=== PATIENT | female | born 1940 | race Caucasian/White ===

== ENCOUNTER 2019-07-04 22:50 | Inpatient (IN) ==
[2019-07-04] MEDS ORDERED: DUONEB (A & A) INH ONE ×2 (22:52→22:53)
[2019-07-04 23:40] LABS: CALCIUM 8.8 mg/dL (8.8-10.2); POTASSIUM 4.3 mmol/L (3.5-5.1)
[2019-07-05 00:27] LABS: BASO# 0.05 X1000 (0.0-0.2); BASO% 0.3 % (0.0-0.8); EOS# 0.38 X1000 (0.0-0.7); EOS% 2.6 % (0.0-10.0); HEMATOCRIT 35.2 % (37.0-47.0); HEMOGLOBIN 10.1 g/dL (12.0-16.0); IMM GRAN# 0.23 X1000 (0.0-0.04); IMM GRAN% 1.6 % (0.0-0.5); LYMPH# 4.16 X1000 (1.2-3.4); LYMPH% 28.8 % (20.5-51.1); MCH 26.7 PG (27-31); MCHC 28.7 g/dL (33-37); MCV 93.1 FL (81-99); MONO# 1.15 X1000 (0.11-0.59); MPV 10.7 FL (7.4-10.4); NEUT# 8.49 X1000 (1.4-6.5); NEUT% 58.7 % (42.2-75.2); PLT 272 X1000 (130-400); RBC 3.78 XMIL (4.2-5.4); WBC 14.46 X1000 (4.8-10.8)
[2019-07-05] MEDS ORDERED: LASIX IV ONE (00:44)
[2019-07-05] MEDS ORDERED: ASPIRIN PO ONE (00:57)
[2019-07-05] MEDS ORDERED: ZITHROMAX 500 MG/NS 500 MG/250 ML IVPB IV SCH (02:45)
[2019-07-05] MEDS ORDERED: ROCEPHIN 1 GM in NS 50 ML IV ONE (02:45)
--- NOTE | 2019-07-05 03:11 | PROVIDER DOCUMENTATION ---
This chart was entered by Shyanne Hines Scribe, acting as scribe for Stephon Akbar MD. HPI-General Adult <Anayeli Cheng - Last Filed: 07/05/19 00:50> - General Source: EMS, other ([facility] record) Unable to obtain history due to:: altered - History of Present Illness -Gen Adult Nature of Presenting Problems: pt is a 78 yr old female presenting via EMS from [facility] with report of increased shortness of breath, weeping edema and erythema to bilateral upper and lower extremities. tonight pt Spo2 sat was 88% on 2lpm, facility sent to ER for evaluation. pt hx Alzheimer dz. pt denies any complaints, does not understand wh y she is here. <tSephon Akbar - Last Filed: 07/05/19 03:11> <Babita Ku - Last Filed: 07/05/19 05:29> - General Chief Complaint: Shortness of Breath Stated Complaint: SOB, Aggitation, Edema Time Seen by Provider: 07/04/19 22:51 Allergies/Adverse Reactions: Patient Allergies Allergy/AdvReac Type Severity Reaction Status Date / Time ceftriaxone Allergy Unknown Verified 06/30/19 22:46 daptomycin Allergy Unknown Verified 06/30/19 22:46 Home Medications: Home Medication List Medication Instructions Recorded Confirmed Last Taken Type ATORVAstatin [Lipitor] 10 mg PO DAILY 06/30/19 06/30/19 06/30/19 08:00 History ATORVAstatin [Lipitor] 10 mg PO DAILY 06/30/19 07/01/19 06/30/19 08:00 History Allopurinol [Zyloprim] 300 mg PO HS 06/30/19 07/01/19 06/28/19 21:00 History Apixaban [Eliquis] 1 tab PO BID 06/30/19 06/30/19 06/30/19 08:00 History Calcium Carbonate Chew [Tums] 500 mg PO DAILY 06/30/19 06/30/19 06/30/19 08:00 History Dicyclomine [Bentyl] 10 mg PO Q8H PRN PRN 06/30/19 07/01/19 Unknown History Docusate Sodium [Colace] 100 mg PO BID PRN PRN 06/30/19 07/01/19 Unknown History Ferrous Sulfate 325 mg PO TID 06/30/19 07/01/19 06/30/19 13:00 History Furosemide [Lasix] 40 mg PO DAILY 06/30/19 06/30/19 06/30/19 08:00 History Glipizide 5 mg PO DAILY 06/30/19 06/30/19 06/30/19 08:00 History Hydrocodone/Acetaminophen 1 ea PO Q6H PRN PRN 06/30/19 07/01/19 Unknown History [Hydrocodone-Acetamin 5-325 mg] Insulin Glargine [Lantus Insulin] 45 units SQ HS 06/30/19 07/01/19 06/28/19 21:00 History Insulin Lispro [Humalog] 15 units SUBQ BID CC 06/30/19 06/30/19 06/30/19 07:00 History Mesalamine 2 tab PO DAILY 06/30/19 06/30/19 06/30/19 08:00 History Pantoprazole Sodium 40 mg PO DAILY 06/30/19 06/30/19 06/30/19 08:00 History Potassium Chloride E.r. [Klor-Con] 10 meq PO DAILY 06/30/19 06/30/19 06/30/19 08:00 History Prednisone 5 mg PO DAILY 06/30/19 07/01/19 06/30/19 08:00 History Risperidone 0.5 mg PO BID 06/30/19 06/30/19 06/30/19 08:00 History l Acidophil/B Lactis/B Longum 1 cap PO DAILY 06/30/19 06/30/19 06/30/19 08:00 History [Florajen3 Capsule] Review of Systems - Adult - REVIEW OF SYSTEMS - ADULT ROS:: unobtainable per condition <Stephon Akbar - Last Filed: 07/05/19 03:11> - REVIEW OF SYSTEMS - ADULT ROS:: limited per condition Constitutional: reports: see HPI <Babita Ku - Last Filed: 07/05/19 05:29> Past History - Adult - PAST MEDICAL HISTORY-ADULT Review of Records: reports: Old Records Reviewed ([facility] records/OCT), Nursing Assessment Review, Medications Reviewed, Social history reviewed & non-c ontributory. Major Childhood Illnesses: reports: denies history Cardiovascular: reports: denies history Respiratory: reports: denies history Gastrointestinal: reports: denies history Obstetrical/Gynecological: reports: denies history Genitourinary: reports: denies history Musculoskeletal: reports: denies history Neurological: reports: denies history Endocrine/Immune: reports: denies history Other Conditions: reports: denies history - IMMUNIZATION STATUS Childhood Immunizations: See Nurse Assessment Flu Vaccine: See Nurse Assessment - FAMILY HISTORY Family History: reviewed, not pertinent <Stephon Akbar - Last Filed: 07/05/19 03:11> Physical Exam-General - CONSTITUTIONAL General Appearance: alert, no apparent distress, obese, other (screams out intermittently) - EYES Eyes: PERRL/EOMI - HEAD, EARS, NOSE, MOUTH & THROAT HENMT: normocephalic/atraumatic - NECK Neck: supple, normal inspection - RESPIRATORY Respiratory: no respiratory distress, no accessory muscle use, decreased breath sounds, crackles (bialteral bases) - CARDIOVASCULAR Cardiovascular: normal peripheral pulses, regular rate, rhythm, no murmur - GASTROINTESTINAL (ABDOMEN) Abdominal Exam: normal bowel sounds, non tender, soft - MUSCULOSKELETAL Back Exam: normal inspection Extremity: pedal edema (1-2 + bilaterally) - SKIN Integumentary: normal color, warm/dry - NEUROLOGIC Neurologic: grossly normal - PSYCHIATRIC Psych/Mental Status: disoriented x 3, paranoid <Babita Ku - Last Filed: 07/05/19 05:29> Progress - PLAN OF CARE/RESULTS Progress/Plan/Lab Results: Vital Signs - 8 hr 07/04/19 22:51 07/04/19 23:15 Temperature 99.0 F Pulse Rate 90 90 Respiratory Rate 20 13 Blood Pressure 144/81 O2 Sat by Pulse Oximetry 97 98 Laboratory Results - last 24 hr 07/04/19 07/04/19 07/04/19 23:20 23:20 23:20 WBC 14.46 H RBC 3.78 L Hgb 10.1 L Hct 35.2 L MCV 93.1 MCH 26.7 L MCHC 28.7 L RDW Std Deviation 18.0 H Plt Count 272 D MPV 10.7 H Immature Gran % (Auto) 1.6 H Neut % (Auto) 58.7 Lymph % (Auto) 28.8 [place] % (Auto) 8.0 Eos % (Auto) 2.6 Baso % (Auto) 0.3 Immature Gran # (Auto) 0.23 H Neut # (Auto) 8.49 H Lymph # (Auto) 4.16 H [place] # (Auto) 1.15 H Eos # (Auto) 0.38 Baso # (Auto) 0.05 Sodium 143 Potassium 4.3 Chloride 104 Carbon Dioxide 28 Anion Gap 11 BUN 16 Creatinine 1.0 H Estimated GFR/1.73 m2 53 BUN/Creatinine Ratio 16 Glucose 91 Calculated Osmolality 286 Calcium 8.8 Magnesium 2.1 Qqh-D-Yhmcfzrsbfa Pept 07/04/19 23:20 WBC RBC Hgb Hct MCV MCH MCHC RDW Std Deviation Plt Count MPV Immature Gran % (Auto) Neut % (Auto) Lymph % (Auto) [place] % (Auto) Eos % (Auto) Baso % (Auto) Immature Gran # (Auto) Neut # (Auto) Lymph # (Auto) [place] # (Auto) Eos # (Auto) Baso # (Auto) Sodium Potassium Chloride Carbon Dioxide Anion Gap BUN Creatinine Estimated GFR/1.73 m2 BUN/Creatinine Ratio Glucose Calculated Osmolality Calcium Magnesium Qfw-S-Mduqwvkstng Pept 290 Orders Category Date Time Status CHEST-PORTABLE [RAD] Stat Exams 07/04/19 22:52 Taken BASIC METABOLIC PANEL [CHEM] Stat Lab 07/04/19 23:20 Completed BLOOD CULTURE [BLDCUL] Stat Lab 07/04/19 23:29 Ordered CBC WITH ELECTRONIC DIFF [HEME] Stat Lab 07/04/19 23:20 Completed MAGNESIUM [CHEM] Stat Lab 07/04/19 23:20 Completed PRO B-NATRIURETIC PEPTIDE Stat Lab 07/04/19 23:20 Completed TROPONIN T Stat Lab 07/05/19 00:31 Ordered TROPONIN T Stat Lab 07/05/19 00:31 Stop Req Albuterol 2.5MG/Ipratrop 0.5MG [Duoneb (A & A)] Med 07/04/19 22:52 Di scontinued 3 ml INH NOW ONE Albuterol 2.5MG/Ipratrop 0.5MG [Duoneb (A & A)] Med 07/04/19 22:53 Discontinued 3 ml INH NOW ONE Aerosol Treatments Routine Oth 07/04/19 22:53 Completed Aerosol Treatments Routine Oth 07/04/19 22:54 Completed Aerosol Treatments Stat Oth 07/04/19 22:53 Completed Aerosol Treatments Stat Oth 07/04/19 22:54 Completed EKG [EKG] Stat Ther 07/04/19 22:53 Ordered 1225: TRAVIS NOTIFIED BY RN THAT PATIENT HAD AN ELEVATED HR AND WAS COMPLAINING OF INCREASED GENERALIZED PAIN. THE PATIENT WAS ASSESSED AND C/O LOW BACK PAIN AND DID NOT REPORT ANY SPECIFIC CHEST DISCOMFORT. LABS AND XRAY WAS REVIEWED BY TRAVIS. ORDER PLACED FOR REPEAT EKG AND TROPONIN. CXR- POOR INSPIRATION AND SOME WIDENING NOTED . NOTIFIED THE MD TREATING THE PATIENT. HE WILL THE PATIENTS CARE Result Diagrams: 07/04/19 23:20 07/04/19 23:20 <Anayeli Cheng - Last Filed: 07/05/19 00:50> - PLAN OF CARE/RESULTS Progress/Plan/Lab Results: Vital Signs - 8 hr 07/04/19 22:51 Temperature 99.0 F Pulse Rate 90 Respiratory Rate 20 Blood Pressure 144/81 O2 Sat by Pulse Oximetry 97 Orders Category Date Time Status CHEST-PORTABLE [RAD] Stat Exams 07/04/19 22:52 Ordered BASIC METABOLIC PANEL [CHEM] Stat Lab 07/04/19 22:53 Ordered CBC WITH ELECTRONIC DIFF [HEME] Stat Lab 07/04/19 22:53 Uncollected MAGNESIUM [CHEM] Stat Lab 07/04/19 22:53 Uncollected PRO B-NATRIURETIC PEPTIDE Stat Lab 07/04/19 22:53 Uncollected Albuterol 2.5MG/Ipratrop 0.5MG [Duoneb (A & A)] Med 07/04/19 22:52 Discontinued 3 ml INH NOW ONE Albuterol 2.5MG/Ipratrop 0.5MG [Duoneb (A & A)] Med 07/04/19 22:53 Discontinued 3 ml INH NOW ONE Aerosol Treatments Routine Oth 07/04/19 22:53 Active Aerosol Treatments Routine Oth 07/04/19 22:54 Active Aerosol Treatments Stat Oth 07/04/19 22:53 Active Aerosol Treatments Stat Oth 07/04/19 22:54 Active EKG [EKG] Stat Ther 07/04/19 22:53 Ordered Result Diagrams: 07/04/19 23:20 07/04/19 23:20 - REASSESSMENT Reassessment #1 Status: other (I RECEVIED REPORT FROM MLD (PRINTED [employer]ARD [employer]EL[employer] DEVELOPER) THAT WHILE I WAS ON THE FLOOR ATTENDING TO ANOTHER PATIENT, MS. FAULKNER WAS COMPLAINING OF CHEST DISCOMFORT. D URING MY REEVALUATION, PATIENT DENIES ANY CHEST DISCOMFORT AND REPEAT EKG ORDERED BY PRINTED CIRCUIT [employer]ARD [employer]EL[employer] DEVELOPER DID NOT SHOW ANY DIFFERENT FROM THE FIRST ONE; NRS WITH INCOMPLETE RBBB. I HAVE ORDERED ASPIRIN. I DID EARLIER REVIEW THE CXR WHICH DID SHOW WIDENING OF MEDIASTIUM AND PREVIUS CXR WITH RADIOLOGIST READ OF Mildly prominent heart.. I HAVE REQUESTED TECH TO SEND IT OUT FOR OFFICIAL READ; IF STILL DOESN'T MENTION OF WIODENING OF MEDIASTIUM, I WILL ORDER CTA. CURRENTLY CHEST PAIN FREE, WILL HOLD OF MORPHINE AND NITRATE SL. PATIENT AOX3) Reassessment #2 Time Reassessed: 02:32 Status: other (WHILE GETTING CT OF CHEST PATIENT DECLINED. DURING MY REEVAL UATION; PATIENT IS AOX3 AND ABLE TO COMPREHEND IF WE DO NOT GET CT SCAN TO R/O ANEURYSM, IT MY RUPTURE AND PATIENT WAS ABLE TO SAY IT BACK TO ME WHEN I REASKED WHAT WOULD HAPPEN IF WE DONT' GET THE CT SCAN. I WILL WAIT FOR 2ND TROPONIN AND CALL HOSPITALST .) Reassessment #3 Time Reassessed: 02:45 Status: other (PAGED HOSPITALIST.) Reassessment #4 Time Reassessed: 03:10 Status: other (HOSPIALIST PAGED 2ND TIME AT 0300; PENDING RETURN CALL. WILL SIGN OUT PATIENT CARE TO DR. KU) - EKG 1 Time of EKG reading by physician:: 23:00 EKG Read and Signed by:: Stephon Akbar EKG Interpretation (*Must complete 3 of following elements*): Normal Rate: 92 Rhythm: NORMAL SINUS RHYTHM [place]: normal QRS: normal [place] Interval: normal ST Wave: normal Prior EKG Comparison: no prior EKG 2 Time of EKG reading by physician:: 00:21 EKG Read and Signed by:: Stephon Akbar EKG Interpretation (*Must complete 3 of following elements*): Normal Rate: 96 Rhythm: NRS [place]: normal QRS: normal [place] Interval: normal ST Wave: normal Prior EKG Comparison: unchanged from prior - CHANGE OF SHIFT REPORT (ED Provider) 1 Report Given and Care Transferred to:: DR. KU Time of Transfer: 03:11 Items Pending: Physician Consult/Arrival <Stephon Akbar - Last Filed: 07/05/19 03:11> - PLAN OF CARE/RESULTS Progress/Plan/Lab Results: Vital Signs - 8 hr 07/04/19 22:51 07/04/19 23:15 07/05/19 00:37 Temperature 99.0 F Pulse Rate 90 90 103 H Respiratory Rate 20 13 20 Blood Pressure 144/81 153/91 O2 Sat by Pulse Oximetry 97 98 07/05/19 01:16 07/05/19 03:20 Temperature 98.6 F Pulse Rate 93 H 97 H Respiratory Rate 22 20 Blood Pressure 188/116 150/64 O2 Sat by Pulse Oximetry 98 95 Laboratory Results - last 24 hr 07/04/19 07/04/19 07/04/19 23:20 23:20 23:20 WBC 14.46 H RBC 3.78 L Hgb 10.1 L Hct 35.2 L MCV 93.1 MCH 26.7 L MCHC 28.7 L RDW Std Deviation 18.0 H Plt Count 272 D MPV 10.7 H Immature Gran % (Auto) 1.6 H Neut % (Auto) 58.7 Lymph % (Auto) 28.8 [place] % (Auto) 8.0 Eos % (Auto) 2.6 Baso % (Auto) 0.3 Immature Gran # (Auto) 0.23 H Neut # (Auto) 8.49 H Lymph # (Auto) 4.16 H [place] # (Auto) 1.15 H Eos # (Auto) 0.38 Baso # (Auto) 0.05 Sodium 143 Potassium 4.3 Chloride 104 Carbon Dioxide 28 Anion Gap 11 BUN 16 Creatinine 1.0 H Estimated GFR/1.73 m2 53 BUN/Creatinine Ratio 16 Glucose 91 POC Glucose Calculated Osmolality 286 Calcium 8.8 Magnesium 2.1 Creatine Kinase Troponin T Qqa-J-Fkpcjnhdsto Pept Urine Source Urine Color Urine Clarity Urine pH Ur Specific [place] Urine Protein Urine Ketones Urine Blood Urine Nitrite Urine Bilirubin Urine Urobilinogen Urine Microscopic RBC Urine WBC Urine Microscopic WBC Ur Epithelial Cells Urine Bacteria Urine Glucose 07/04/19 07/04/19 07/05/19 23:20 23:20 01:50 WBC RBC Hgb Hct MCV MCH MCHC RDW Std Deviation Plt Count MPV Immature Gran % (Auto) Neut % (Auto) Lymph % (Auto) [place] % (Auto) Eos % (Auto) Baso % (Auto) Immature Gran # (Auto) Neut # (Auto) Lymph # (Auto) [place] # (Auto) Eos # (Auto) Baso # (Auto) Sodium Potassium Chloride Carbon Dioxide Anion Gap BUN Creatinine Estimated GFR/1.73 m2 BUN/Creatinine Ratio Glucose POC Glucose Calculated Osmolality Calcium Magnesium Creatine Kinase 41 Troponin T 0.194 H Kab-H-Hgdinbakfwy Pept 290 Urine Source Urine Color Urine Clarity Urine pH Ur Specific [place] Urine Protein Urine Ketones Urine Blood Urine Nitrite Urine Bilirubin Urine Urobilinogen Urine Microscopic RBC Urine WBC Urine Microscopic WBC Ur Epithelial Cells Urine Bacteria Urine Glucose 07/05/19 07/05/19 07/05/19 01:50 03:19 04:50 WBC RBC Hgb Hct MCV MCH MCHC RDW Std Deviation Plt Count MPV Immature Gran % (Auto) Neut % (Auto) Lymph % (Auto) [place] % (Auto) Eos % (Auto) Baso % (Auto) Immature Gran # (Auto) Neut # (Auto) Lymph # (Auto) [place] # (Auto) Eos # (Auto) Baso # (Auto) Sodium Potassium Chloride Carbon Dioxide Anion Gap BUN Creatinine Estimated GFR/1.73 m2 BUN/Creatinine Ratio Glucose POC Glucose 114 H Calculated Osmolality Calcium Magnesium Creatine Kinase Troponin T 0.195 H Gtm-K-Ylbmmkfqcka Pept Urine Source CATH Urine Color YELLOW Urine Clarity CLEAR Urine pH 6.5 Ur Specific [place] 1.005 Urine Protein NEGATIVE Urine Ketones NEGATIVE Urine Blood 3+ A Urine Nitrite NEGATIVE Urine Bilirubin NEGATIVE Urine Urobilinogen NORMAL Urine Microscopic RBC 10-20 A Urine WBC NEGATIVE Urine Microscopic WBC <10 Ur Epithelial Cells <10 Urine Bacteria NEGATIVE Urine Glucose NEGATIVE Orders Category Date Time Status Admit - [facility] Routine AdmDCTranf 07/05/19 05:18 Ordered Call Admitting on Arrival AT ADMISSION Care 07/05/19 05:18 Ordered [place] Cath Insertion ORDERED Care 07/05/19 04:21 Active Neurological Check PRN Care 07/05/19 05:17 Ordered Resuscitation Status Routine Care 07/05/19 05:17 Ordered Saline Loc DIRECTED Care 07/05/19 05:17 Ordered Vital Signs Order ORDERED Care 07/05/19 05:17 Ordered Z-Document. for Tele Applied ORDERED Care 07/05/19 05:19 Ordered Heart Healthy Diet Diet 07/05/19 Diet Enter Time Ordered CHEST-PORTABLE [RAD] Stat Exams 07/04/19 22:[address] ANGIOGRAM THORAX [CT] Stat Exams 07/05/19 03:24 Taken BASIC METABOLIC PANEL [CHEM] Stat Lab 07/04/19 23:20 Completed BLOOD CULTURE [BLDCUL] Stat Lab 07/04/19 01:50 Ordered CBC WITH ELECTRONIC DIFF [HEME] Stat Lab 07/04/19 23:20 Completed CK PROFILE [SP CHEM] Stat Lab 07/05/19 01:50 Completed MAGNESIUM [CHEM] Stat Lab 07/04/19 23:20 Completed PRO B-NATRIURETIC PEPTIDE Stat Lab 07/04/19 23:20 Completed TROPONIN T Stat Lab 07/05/19 00:31 Completed TROPONIN T Stat Lab 07/05/19 01:[address] W/POSS RFLX CULT [URINALYSIS] Stat Lab 07/05/19 04:50 Completed Albuterol 2.5MG/Ipratrop 0.5MG [Duoneb (A & A)] Med 07/04/19 22:52 Discontinued 3 ml INH NOW ONE Albuterol 2.5MG/Ipratrop 0.5MG [Duoneb (A & A)] Med 07/04/19 22:53 Discontinued 3 ml INH NOW ONE Aspirin Med 07/05/19 00:57 Discontinued 324 mg PO NOW ONE Azithromycin 500 mg/Ns [Zithromax 500 mg/Ns] Med 07/05/19 02:45 Active 500 mg in 250 ml IV Q24H CefTRIAXONE [Rocephin] 1 gm Med 07/05/19 02:45 Discontinued 0.9% Sodium Chloride Inj [Ns] 50 ml IV NOW Furosemide [Lasix] Med 07/05/19 00:44 Discontinued 40 mg IV NOW ONE Haloperidol Lactate [Haldol] Med 07/05/19 03:25 Discontinued 5 mg IV NOW ONE Aerosol Treatments Routine Oth 07/04/19 22:53 Completed Aerosol Treatments Routine Oth 07/04/19 22:54 Completed Aerosol Treatments Stat Oth 07/04/19 22:53 Completed Aerosol Treatments Stat Oth 07/04/19 22:54 Completed Telemetry [OM.EQ] Routine Oth 07/05/19 05:17 Ordered EKG [EKG] Stat Ther 07/04/19 22:53 Draft Transfer/Admit Order [TRANSFER] Routine Transfer 07/05/19 05:17 Ordered Patient signed out to me pending admission to Dr Castro. She has had some hypoxia, her CXR appears patchy but low concern for sepsis and likely more CHF. Her troponin came back elevated but she is not having any chest pain. unknown if this is 2.2 to possible CHF. Held off giving lovenox as patient already takes eliquis. Patient had refused CTA chest and when Dr Akbar went to evlauate her she was A&Ox3 and appeared to be consentable. Spoke to Dr Castro and he states that we need to reevaluate her mental capacity. I went in to speak with the patient myself and she was not answering my questions and would not tell me her name or why she didnt want to have the CT. She appears to play games off and on. This could be 2.2 to her psych history. Given that she seems to fluctuate with her mental status and cooperation will do CTA as patient appears to not be making decisions in the best of her interest. Patient was given Haldol and CTA was completed. CTA showing mediastinal fat but no dissection or aneurysm. Spoke back with Dr Castro who accepted her for admission. Wants her in PVCU. Basic orders plaved. Further orders to be placed by their team. Result Diagrams: 07/04/19 23:20 07/04/19 23:20 - CT/MRI 1 CT Study: Angiogram (prominent mediastinal fat, no dissection, negative for aneurysm or mass) - CONSULTS/PCP/HOSPITALIST Notification #1 *Consult/PCP/Hospitalist*: Dr Castro Time Discussed: 03:33 Reason/Comments: wants CTA, concerned patient is not able to make her own decisions <Babita Ku - Last Filed: 07/05/19 05:29> Departure <Anayeli Cehng - Last Filed: 07/05/19 00:50> <Stephon Akbar - Last Filed: 07/05/19 03:11> - Departure Date of Disposition Decision: 07/05/19 Time of Disposition Decision: 05:19 Certified Medical Emergency: Emergent - Critical Care Note This patient required my direct & personal management of CC.: Yes Total Time (mins): 76 Critical Care Statement: This patient required my direct personal management to treat or rule out processes, the absence of which, could potentiallly result in sudden, clinically significant life or limb threatening deterioration. <Babita Ku - Last Filed: 07/05/19 05:29> - Departure DIAGNOSIS: Hypoxia, Dyspnea, Elevated troponin, Dementia in other diseases classified elsewhere with behavioral disturbance Disposition: ADMITTED INPATIENT 09 Condition: Stable Referrals and Follow-Ups: Ryan Montoya [Primary Care Provider] - Attestation - Physician/ NAYELY Attestation Patient care was provided by Advanced Practice Provider:: No The physician spent face to face time with patient:: Yes Advanced Practice Provider documentation review:: Supervising physician onsite and consulted in the evaluation and care of this patient. The physician did have a face to face encounter with the patient. <Babita Ku - Last Filed: 07/05/19 05:29> This chart was documented by the indicated scribe, (Shyanne Hines, Scribnarcisa) and accurately reflects the services I performed and decisions made by me, Pradeep Akbar MD, as attested by the provider's signature.
[2019-07-05] MEDS ORDERED: HALDOL IV ONE (03:25)
--- NOTE | 2019-07-05 05:04 | EKG Report ---
Test Performed on : 07/04/2019 11:00:54 PM Test Reason : CP Blood Pressure : / mmHG Vent. Rate : 092 BPM Atrial Rate : 092 BPM P-R Int : 116 ms QRS Dur : 108 ms QT Int : 392 ms P-R-T Axes : 050 -19 012 degrees QTc Int : 484 ms Normal sinus rhythm. Low voltage QRS Incomplete right bundle branch block Borderline ECG When compared with ECG of 03-JUL-2019 05:15, premature atrial complexes. are no longer present Unconfirmed Result
[2019-07-05 05:10] LABS: BILIRUBIN URINE NEGATIVE (NEGATIVE); BLOOD URINE 3+ (NEGATIVE); GLUCOSE URINE NEGATIVE (NEGATIVE); KETONE URINE NEGATIVE (NEGATIVE); LEUKOCYTES URINE NEGATIVE (NEGATIVE); NITRITE URINE NEGATIVE (NEGATIVE); PH URINE 6.5; PROTEIN URINE NEGATIVE (NEGATIVE); SP GRAVITY URINE 1.005; UROBILINOGEN URINE NORMAL
[2019-07-05 05:11] LABS: CLARITY CLEAR (CLEAR); COLOR YELLOW
[2019-07-05 05:13] LABS: URINE SOURCE CATH
--- NOTE | 2019-07-05 05:13 | Diag Imaging Result Doc PS360 ---
EXAM: CHEST-PORTABLE HISTORY: SOB TECHNIQUE: Single view COMPARISON: 07/12/2019 FINDINGS: Poor inspiratory effort. The heart is borderline mildly prominent. The vessels are not distended. There are no infiltrates. No effusion identified. IMPRESSION: Stable exam Electronically signed by Otilio Dominguez 07/05/2019 5:11 AM
[2019-07-05 05:14] LABS: URINE BACTERIA NEGATIVE /HFP; URINE EPITHELIAL CELLS <10 /HPF (<10); URINE WBC <10 /HPF (<10)
--- NOTE | 2019-07-05 05:38 | Diag Imaging Result Doc PS360 ---
EXAM: CT ANGIOGRAM THORAX HISTORY: Elevated Troponin TECHNIQUE: CT chest with intravenous contrast. Pulmonary arterial protocol with MIP images. COMPARISON: None. FINDINGS: Somewhat suboptimal opacification of the pulmonary arteries. No large central pulmonary emboli. No aortic aneurysm or dissection. Heart is mildly enlarged. Prominent mediastinal fat. No enlarged lymph nodes. No pleural effusions. Mild vascular distention. No consolidation. No bronchiectasis. Long-standing shoulder arthritis. IMPRESSION: 1.No pulmonary emboli 2.Cardiomegaly with mild pulmonary edema 3.Limited images of the upper abdomen reveal fatty infiltration of the liver. There may be several tiny gallstones as well. 4.A preliminary report was given at 5:07 AM This exam was performed using automated exposure control, adjustment of mA or kV according to patient size, and/or use of iterative reconstruction technique. Electronically signed by Otilio Dominguez 07/05/2019 5:35 AM
--- NOTE | 2019-07-05 07:28 | EKG Report ---
Test Performed on : 07/05/2019 07:20:03 AM Test Reason : CP Blood Pressure : / mmHG Vent. Rate : 090 BPM Atrial Rate : 090 BPM P-R Int : 124 ms QRS Dur : 108 ms QT Int : 414 ms P-R-T Axes : 073 007 031 degrees QTc Int : 506 ms Normal sinus rhythm. Low voltage QRS Incomplete right bundle branch block Prolonged QT Abnormal ECG When compared with ECG of 05-JUL-2019 00:21, (Unconfirmed) Nonspecific T wave abnormality, improved in Anterior leads Unconfirmed Result
[2019-07-05] MEDS ORDERED: CALMOSEPTINE OINTMENT TOP PRN (07:38)
[2019-07-05 08:22] LABS: INR 1.27; PROTIME 16.1 Seconds (11.0-16.0)
[2019-07-05 08:23] LABS: ALB/GLOB RATIO 1.1; CALCIUM 8.4 mg/dL (8.8-10.2); POTASSIUM 3.7 mmol/L (3.5-5.1); PTT 40.6 Seconds (22.3-41.8); TOTAL BILIRUBIN 0.15 mg/dL (0.20-1.00); TOTAL PROTEIN 5.7 g/dL (6.3-8.3)
[2019-07-05 08:31] LABS: PREALBUMIN 15.3 mg/dL (20-40)
[2019-07-05 08:38] LABS: C REACTIVE PROT QUANT 36.55 mg/L (0.00-5.00)
--- NOTE | 2019-07-05 09:07 | EKG Report ---
Test Performed on : 07/05/2019 00:21:46 AM Test Reason : ER Blood Pressure : / mmHG Vent. Rate : 096 BPM Atrial Rate : 096 BPM P-R Int : 120 ms QRS Dur : 108 ms QT Int : 384 ms P-R-T Axes : 034 -29 -03 degrees QTc Int : 485 ms Normal sinus rhythm. Incomplete right bundle branch block Nonspecific T wave abnormality Prolonged QT Abnormal ECG When compared with ECG of 04-JUL-2019 23:00, (Unconfirmed) No significant change was found Unconfirmed Result
--- NOTE | 2019-07-05 11:01 | HISTORY AND PHYSICAL ---
PRIMARY CARE PROVIDER: Dr. Ryan Montoya. CHIEF COMPLAINT: Per ED record, altered. HISTORY OF PRESENT ILLNESS: Ms. Ng is a 78-year-old, female who was brought in from [facility] to [place] ED for shortness of breath and hypoxemia with weeping edema and erythema to bilateral lower extremities. She was found to have an O2 saturation of 88% on 2 L nasal cannula at their facility. She does have a history of Alzheimer's dementia. Workup in the ED at [facility] showed elevated troponins. They did check a chest x-ray where they felt that she had a wide mediastinum. They followed it up with a CTA of the chest that just showed a cardiac fat pad. The patient was transferred to [facility] for further evaluation and workup with cardiology. The patient is a poor historian. She does not know why she was brought to the hospital. She tells me to ask the ambulance workers. She could not tell me her name, her date of , or what year it was. She could tell me that she lived in [place]. She did state that she does have family. It appears she was admitted for behavioral disturbances to [facility] from her assisted living facility from [facility]. She is currently in restraints and received Haldol. PAST MEDICAL HISTORY: Per [facility] assessment, diabetes mellitus, COPD, edema, GERD, arthritis, hypertension, gout, heart failure, umbilical hernia, blood clots. PAST SURGICAL HISTORY: Hysterectomy, hernia repair, left hand surgery, tonsillectomy, adenoidectomy. ALLERGIES: Ceftriaxone and daptomycin. REVIEW OF SYSTEMS: Unable to obtain. HOME MEDICATIONS: Have not been verified. However, list from [facility] is allopurinol, Eliquis, Lipitor, calcium carbonate, B12, Bentyl, Colace, ferrous sulfate, Lasix, glipizide, Powell, Lantus, lactobacillus, Protonix, potassium, prednisone. PHYSICAL EXAMINATION: VITAL SIGNS: Temperature is 98.3 degrees, heart rate 94, respirations , blood pressure 134/57, O2 is 98% on 2 L nasal cannula. GENERAL: Ms. Ng is a 78-year-old, female who was lying in the bed sleeping, restrained. She will awaken to tactile stimuli. She is not really answering any questions. She is in no acute distress, somewhat uncooperative. HEENT: Appears atraumatic, normocephalic. PERRL. NECK: Supple. Trachea midline. CARDIOVASCULAR: S1 and S2 are appreciated. No murmurs, gallops, or rubs noted. RESPIRATORY: Lung sounds clear bilaterally. GASTROINTESTINAL: Soft. Tender to her umbilical hernia, otherwise nontender. Positive bowel sounds in 4 quadrants. EXTREMITIES: Lower extremities, she does have some edema to her lower extremities. There are various stages of redness. Per [facility] notes, they had been wrapped in some type of bandage and then covered in elastic stockings. She does have a skin tear to her left forearm that is currently dressed and covered. There is redness to her sacrum. GENITOURINARY: [place] draining yellow urine. NEUROLOGIC: The patient does awake to tactile stimuli. However, she is not really cooperative, does not really answer all questions. SOCIAL HISTORY: Per record, she is from [facility]. She states that she does have family. She reports she smoked years ago. Other than that, she really did not offer up any more information. FAMILY HISTORY: Unknown. DIAGNOSTIC DATA: Chest x-ray, stable exam. CTA of the chest, no PE, cardiomegaly with mild pulmonary edema. Limited images of the upper abdomen revealed fatty infiltration of the liver, maybe several tiny gallstones as well. Several EKGs showed normal sinus rhythm with an incomplete right bundle branch block, with a prolonged QT, and 90 beats per minute. LABORATORY DATA: White count 14, hemoglobin and hematocrit 10 and 35, platelet count is 272,000. D-dimer was 0.88. Sodium 143, potassium 4.3, BUN 16, creatinine 1, blood glucose was 91. Initial troponin was 0.194, second troponin was 0.95, third troponin was 0.163. ProBNP was 290. Urinalysis was negative for bacteria and negative for nitrites. ASSESSMENT AND PLAN: 1. Hypoxemia upon admission. Patient will continue on supplemental oxygen. She does have a history of chronic obstructive pulmonary disease. Does not appear to be in exacerbation. 2. Questionable chest pain in a patient who does not have reliable information given her Alzheimer's dementia. She is not currently complaining of any chest pain. She could not tell me why she was brought to the hospital. She does have 3 sets of positive troponins. We will consult cardiology, check an echocardiogram. 3. Bilateral lower extremity edema with erythema. The patient does have various stages of redness. It does appear that parts of them have been wrapped tightly in some places or had some type of dressing only in various spots. Per [facility] record, they were wrapped in bandages and then had stockings over them. She was given a dose of intravenous Lasix. I did not note any oozing. She was also given intravenous antibiotics. We will ask wound care to come and look at her lower extremities as well as her left forearm and her sacrum. The BLE edema appears to be a chronic issue 4. Chronic obstructive pulmonary disease, not in exacerbation. We will do as needed DuoNebs and supplemental oxygen. 5. Diabetes mellitus. We will place her on sliding scale with pattern of blood sugars. 6. Arthritis. 7. Hypertension. 8. Gout. 9. Congestive heart failure, with a normal proBNP. We will continue home medications when reconciled. 10.DVT history with elevated D-dimer CTA ruled out PE will check BLE dopplers. Further recommendations to follow physician evaluation, laboratory and diagnostic data. Dictated by TRAVIS Smiley for Silvano Fernandez MD cc: Silvano Fernandez MD [facility]
[2019-07-05] MEDS ORDERED: VANCOMYCIN IV PER PHARMACY MISC SCH (11:15)
[2019-07-05 11:18] LABS: ALLEN TEST YES; BE 6.1 mmoll (-3.0-3.0); BLOOD TYPE ARTERIAL; HCO3-(ACT) 29.7 mmoll (20.0-26.0); METHB 0.3 % (0.0-1.5); O2(CT) 16.2 mL/dL (15.0-23.0); O2HB 95.6 % (95.0-99.0); PCO2(98.6) 43 mmHg (35-45); PO2(98.6) 109 mmHg (60-100); SAMPLE BLOOD; SAO2 95.9 % (95.0-100.0); THB 11.9 g/dL (11.5-17.4); pH(98.6) 7.46 (7.35-7.45)
[2019-07-05 11:21] LABS: MODALITY CANNULA
[2019-07-05] MEDS: HUMALOG SUBQ SCH ×3 (11:26→20:36)
[2019-07-05] MEDS: LASIX IV SCH ×2 (11:49→21:06)
[2019-07-05] MEDS: KEFZOL 1 GM/D5W 1 GM/50 ML IVPB IV SCH ×2 (11:49→21:06)
[2019-07-05] MEDS: VANCOMYCIN 1,400 MG in NS 250 ML IV SCH (12:27)
--- NOTE | 2019-07-05 13:34 | HISTORY AND PHYSICAL ---
ADDENDUM TO HISTORY AND PHYSICAL: I have seen and examined Ms. Ng this morning. Ms. Ng and her son came from [facility] because of altered mental status and hypoxemia. I understand she is resident of a care home, was transferred to [place] because of belligerent and altered mental status. She has a history of Alzheimer's dementia. Over there she was found to have an O2 saturation of about 88% on 2 L. This morning, she refers to be doing well, but she remains for most part, just drowsy. OBJECTIVELY: Her current vitals: Blood pressure is 144/81, pulse of 90, respiration is 13, temperature is 99 degrees. Patient was saturating about 97%.General: Ms. Ng is a 78-year-old elderly female she was in bed. She was mainly drowsy, but easily arousable. HEENT: Mucosa is pink and moist. Anicteric. Acyanotic. Neck: Supple, positive JVD. Chest: Air entry was bilaterally reduced with crepitations bilaterally. Cardiovascular: Regular rate and rhythm. There is no murmurs. Abdomen: Soft, is distended. There is a right incisional hernia. There is a large old surgical scar on the anterior abdominal wall. There is a lateral abdominal wall edema. Extremities: About 3 to 4+ pedal edema with erythematous changes in both lower extremities, worse on the left which extends all the way from the lower foot all the way to the mid thigh. LABORATORY DATA: Has been reviewed. WBC for 14.41. Chemistry is also reviewed, is unremarkable. Troponins have been fairly elevated presenting was 0.194, it is down to 0.163. Her EKG on admission did show normal sinus rhythm with right bundle branch block, poor R-wave progression. A repeat this morning remains the same. No changes. A chest x-ray which was done initially showed stable, no infiltrates. A CTA of the chest and thorax showed no pulmonary emboli. There is cardiomegaly with pulmonary edema. The upper stoma seems to suggest stones in the gallbladder. ASSESSMENT: 1. Acute hypoxemic respiratory failure secondary to pulmonary edema. 2. Fluid overload, most likely due to right heart failure. 3. Morbid obesity with suspected obstructive sleep apnea and obesity hypoventilation syndrome. 4. Elevated troponin concerning for non STEMI versus demand ischemia. Electrocardiogram so far have not shown any ST-segment changes or T-waves remarkable T-waves abnormality. Cardiology has been consulted. 5. History of severe Alzheimer's disease with occasional behavioral changes noted. 6. Bilateral lower extremity edema with superimposed cellulitis worse on the left than the right. The patient is on antimicrobial therapy. Please refer to the details of the history and physical which has been dictated by the SEGMENTAL WALL INSTALLER in the chart. cc: Silvano Fernandez MD
[2019-07-05 15:04] LABS: URINE SOURCE CATH
[2019-07-05 15:09] LABS: BILIRUBIN URINE NEGATIVE (NEGATIVE); BLOOD URINE MODERATE (NEGATIVE); COLOR YELLOW; GLUCOSE URINE NEGATIVE (NEGATIVE); KETONE URINE NEGATIVE (NEGATIVE); LEUKOCYTES URINE NEGATIVE (NEGATIVE); NITRITE URINE NEGATIVE (NEGATIVE); PH URINE 6.5; PROTEIN URINE NEGATIVE (NEGATIVE); SP GRAVITY URINE 1.022; TURBIDITY URINE CLEAR (CLEAR); UR EPITHELIAL CELLS <10 /HPF (<10); URINE BACTERIA NEGATIVE /HPF; URINE RBC TNTC /HPF (<10); URINE WBC <10 /HPF (<10); UROBILINOGEN URINE NORMAL (NORMAL)
[2019-07-05 15:48] LABS: UR AMPHETAMINES QUAL NONE DETECTED (NONE DETECT); UR BARBITUATES QUAL NONE DETECTED (NONE DETECT); UR BENZODIAZEPIN QUAL NONE DETECTED (NONE DETECT); UR CANNABINOIDS QUAL NONE DETECTED (NONE DETECT); UR COCAINE QUAL NONE DETECTED (NONE DETECT); UR METHADONE QUAL NONE DETECTED (NONE DETECT); UR OPIATES QUAL NONE DETECTED (NONE DETECT); UR OXYCODONE QUAL NONE DETECTED (NONE DETECT); UR PCP QUAL NONE DETECTED (NONE DETECT)
--- NOTE | 2019-07-05 21:25 | CARDIOLOGY CONSULTATION ---
DATE: 07/05/2019 CONSULTATION REQUESTED BY: Hospitalist service. REASON FOR CONSULTATION: Elevated troponins, question of non-ST elevation myocardial infarction. HISTORY: Mr. Park is a 78-year-old female that apparently was admitted to [facility] on June 30 for management of dementia with behavioral disturbances. Over there, they found that she had swelling of her legs and appeared to be short of breath. They recommended an evaluation in the ER, and in the ER she was found to be hypoxemic. The blood tests, troponin level was 0.194, 0.195 and 0.163. They elected to keep the patient in the hospital. They did a chest CT that shows no pulmonary emboli. There is cardiomegaly with mild pulmonary edema. Limited images of the upper abdomen reveal fatty infiltration of the liver and several gallstones as well. Of note, the patient's proBNP level that was checked is normal at 290 pg/mL, which indicates that there is no heart failure. Also, an echocardiogram was done this afternoon at the bedside, and it shows normal LV systolic function with some diastolic function. The patient admits to having dyspnea. She denies having chest pains. She is not having any pain anywhere at this time. On review of records from [place], it appears that on 09/03/2018, this patient was sent to the [facility] from a [facility] facility because she had refused to take medications. She had stopped talking to staff and was combative with them. At that time on 09/04/2018, she was seen in consultation by Dr. Nikos Blue who looked at the patient because of elevated cardiac enzymes. They felt that there was no need to do any invasive evaluation, and the patient was eventually discharged. The patient has also been back to [facility] between May 02 and May 08. She had again erratic behavior. At that time, they found that she had urinary tract infection. The patient was seen by Dr. Damon his office on 12/14/2018 on a followup of hypertension, deep venous thrombosis and edema. There was no specific intervention suggested at that time. PAST HISTORY: Positive for diabetes mellitus type 2, hyperlipidemia, gout, hypertension, ulcerative colitis and COPD, acid reflux, plus the psychiatric/Alzheimer's history. SURGICAL HISTORY: She had hysterectomy, hernia repair, tonsillectomy, adenoidectomy, left hand surgery. SOCIAL HISTORY: She is . She has 3 children; however, she does not keep in touch with them. She retired from [employer]. She used to live in [place] and her primary physician used to be Dr. Ryan Montoya for many years. She is not a smoker nor a drinker. FAMILY HISTORY: Noncontributory. ALLERGIES: Ceftriaxone and daptomycin. HOME MEDICATIONS: Listed include allopurinol 300 mg at bedtime, apixaban 5 mg twice a day, atorvastatin 10 mg a day, calcium carbonate, glipizide 5 mg daily, Lasix 40 mg daily, ferrous sulfate 325 three times a day, insulin Lantus and insulin Humalog, mesalamine, Protonix, potassium chloride, prednisone, risperidone. The doses are uncertain. Please refer to MAR. REVIEW OF SYSTEMS: Not obtainable. Patient goes in and out of sleep. PHYSICAL EXAMINATION: Vital signs: Blood pressure is 137/61, temperature 98 degrees, pulse 88, respirations 25. She is awake; however, she drifts into sleep very quickly. She is very hard of hearing. HEENT: Unremarkable. Chest: Sounds clear to auscultation and percussion. Heart: Sounds are regular and rhythmic. I do not hear a gallop or murmur. Abdomen: Obese. Extremities: Showed swelling of both lower extremities with diffuse redness. There is some tenderness to palpation. Pulses are diminished. The patient is obese. Her body mass index is 41.6. Neurological exam: She seems to move 4 extremities, and at times she answers appropriately. Her cranial nerves appeared to be normal. There is no obvious focal weakness. LABORATORY DATA: Blood work includes PT at 16.1, D-dimer 0.88, hemoglobin 10.1. Sodium 143, potassium 3.7, BUN 15, creatinine 1.0. C-reactive protein is 36.55 mg/L. HDL is 42, LDL 74, cholesterol 138. Triglycerides 184, prealbumin is 15.3, suggesting some malnutrition. IMPRESSION: 1. The patient presented with shortness of breath and swelling. She had some hypoxemia at the time of presentation in the emergency room.Question of CHF, right sided failure? 2. History of deep venous thrombosis in the past. 3. Alzheimer disease with behavioral disturbances. 4. Elevation of troponin level, question of non-ST elevation myocardial infarction. 5. Review of CT of the thorax shows calcification of the left anterior descending. She may well have coronary artery disease.(coronary atherosclerosis) 6. Morbid obesity. 7. The patient reports a history of sleep apnea syndrome. 8. Long-term history of diabetes mellitus type 2. 9. Lower extremity edema, cellulitis? panniculitis? RECOMMENDATIONS: At this time, probably given the fact that she is not having chest pain and her EKG does not show any acute ischemic changes, conservative approach is probably the best option. If she were to develop ST changes or ongoing chest pain, then one may consider doing invasive evaluation mostly for palliative purposes. At this time that is pointless. The patient really has no heart failure, and her echocardiogram shows excellent left ventricular systolic function. We will run some additional testing including blood cultures and also urine culture. We will basically take it from there. cc: Sanchez Oneill MD MTDD
[2019-07-06] MEDS ORDERED: ZITHROMAX 500 MG/NS 500 MG/250 ML IVPB IV SCH (02:45)
[2019-07-06] MEDS: KEFZOL 1 GM/D5W 1 GM/50 ML IVPB IV SCH ×3 (03:56→20:26)
[2019-07-06] MEDS: DUONEB (A & A) INH PRN ×2 (04:28→11:27)
[2019-07-06] MEDS ORDERED: COLACE PO PRN (05:23)
[2019-07-06 06:12] LABS: HEMATOCRIT 37.4 % (37.0-47.0); HEMOGLOBIN 10.9 g/dL (12.0-16.0); MCH 27.9 PG (27-31); MCHC 29.1 g/dL (33-37); MCV 95.7 FL (81-99); MPV 10.4 FL (7.4-10.4); RBC 3.91 XMIL (4.2-5.4); RDW 17.9 % (11.5-14.5); WBC 15.2 X1000 (4.8-10.8)
[2019-07-06] MEDS: HUMALOG SUBQ SCH ×4 (06:16→20:28)
[2019-07-06 06:34] LABS: CALCIUM 8.3 mg/dL (8.8-10.2); CREATININE 1.2 mg/dL (0.5-0.9); MAGNESIUM 2.1 mg/dL (1.5-2.7); POTASSIUM 3.6 mmol/L (3.5-5.1)
--- NOTE | 2019-07-06 07:08 | Diag Imaging Result Doc PS360 ---
EXAM: CHEST-PORTABLE 07/06/2019 HISTORY: CP TECHNIQUE: AP portable at 0312 COMMENT: The inspiration is suboptimal. Compared to 07/04/2019 considering this there has been no significant change. IMPRESSION: Poor inspiration. Electronically signed by Azeem Pina 07/06/2019 7:06 AM
[2019-07-06] MEDS: FERROUS SULFATE PO SCH ×3 (08:42→18:24)
[2019-07-06] MEDS: LIPITOR PO SCH (08:42)
[2019-07-06] MEDS: TUMS PO SCH (08:42)
[2019-07-06] MEDS: CULTURELLE PO SCH (08:42)
[2019-07-06] MEDS: LIALDA PO SCH (08:43)
[2019-07-06] MEDS: LASIX IV SCH ×2 (08:43→20:25)
--- NOTE | 2019-07-06 09:57 | CARDIOLOGY PROGRESS NOTE ---
DATE: 07/06/2019 CHIEF COMPLAINT: Swelling, hypoxemia, elevated troponins. SUBJECTIVE: Mrs. Ng has no new complaints. She is just not happy here. The respiratory therapist was trying to place a nasal cannula back on her nostrils and she just refused that. Her O2 saturation was 96% in room air. She denies having abdominal pain, no nausea. OBJECTIVE: Vital signs: Her vital signs this morning, blood pressure 145/58, temperature 98.9, pulse 75, respirations 16. General: She is obese, elderly, in no distress, lying in bed. HEENT: Unremarkable. Chest: Diminished breath sounds at bases. Heart: Sounds are regular and rhythmic. I do not hear any gallop or murmur. Abdomen: Obese. Extremities: Showed trace edema, some diffuse redness mild. IMPRESSION: 1. Patient who presented with swelling and hypoxemia. She probably has some edema related to her morbid obesity and perhaps some deep venous insufficiency. 2. Her B-type natriuretic peptid level of note was normal, which basically rules out congestive heart failure. Her electrocardiogram did not show any acute ischemic changes. 3. Suspected sleep apnea syndrome. 4. Evidence of some coronary atherosclerosis. 5. The patient probably has fatty liver. 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 Her liver function tests of note are "normal." 6. Elevation of the troponin level. This is very minimal and this has been an issue in the past when she was admitted to [facility]. They chose to manage her conservatively. The issue with her is that she is probably not very likely to cooperate with imaging studies and with her morbid obesity more than likely we are coming up with equivocal results. She is not a reasonable candidate for intervention. She was already seen by the lode miner, Dr. Ortiz, in [place] on 12/14/2018 and he did not recommend any aggressive course of action. The patient has Alzheimer's history with behavioral disturbance. RECOMMENDATIONS: I would like to obtain uric acid level and consider evaluation by Gastroenterology because of fatty liver. She may have cirrhosis or precirrhotic picture. Further advice will be forthcoming. cc: Sanchez Oneill MD [facility]ITAL[facility]
[2019-07-06] MEDS: VANCOMYCIN 1,400 MG in NS 250 ML IV SCH (14:00)
--- NOTE | 2019-07-06 15:18 | PROGRESS NOTE ---
DATE: 07/06/2019 SUBJECTIVE: Today, Ms. Ng refers to be doing okay. Denies any complaints. She did not want to talk a whole lot. She said she is doing fine and went back to sleep. OBJECTIVE: Vital signs: Blood pressure is 133/58, pulse of 98, respirations 17, temperature is 98.2. General examination: Ms. Ng is a 78-year-old female. She is in bed. No distress. HEENT: Mucosa is pink and moist. Anicteric. Acyanotic. Neck: Supple. Chest: Air entry is bilaterally reduced. A few crackles in the posterior lung malagon. Cardiovascular: Regular rate and rhythm. No murmurs. No rubs. No gallops. GI: Abdomen is distended. There is a right incisional hernia. There is a large old surgical scar in the mid anterior abdominal wall. There is bilateral abdominal wall edema. Extremities: About 3+ pedal edema with erythematous changes on both worst on the left, which extends all the way to the thigh medially. LABORATORY DATA: WBC is 15.20, hemoglobin is 10.9, platelet count of 234. Chemistry is also reviewed. Creatinine is 1.2. ASSESSMENT: 1. Acute hypoxemic respiratory failure on presentation most likely due to pulmonary edema. 2. Fluid overload most likely multifactorial in etiology including right heart failure, morbid obesity, hypoalbuminemia. 3. Morbid obesity with suspected obstructive sleep apnea. 4. Elevated troponin on presentation concerning [id number] myocardial infarction. Cardiology is on broad. 5. History of severe Alzheimer's disease with behavioral disturbances. 6. Unspecified psychosis. 7. Bilateral lower extremity edema with superimposed cellulitis worst on the left than the right. The patient has been started on antimicrobial therapy. 8. Fatty liver disease on a CAT scan. We will get ultrasound of the abdomen to have a better visualization of the liver to rule out cirrhosis as it has been suspected in Cardiology note. Of note, Ms. Ng synthetic function seems to be okay. INR is 1.27. I think her hypoalbuminemia is probably nutritional related. The urinalysis does not show any proteins. cc: Silvano Fernandez MD
--- NOTE | 2019-07-06 15:27 | Diag Imaging Result Doc PS360 ---
EXAM: KUB ABDOMEN 07/06/2019 HISTORY: SBO TECHNIQUE: KUB COMMENT: The stomach small bowel are not distended. The colon is not distended. There is no evidence organomegaly or mass. There are spondylotic changes in the lumbar spine. No previous studies are available for comparison. IMPRESSION: No evidence of obstruction. Electronically signed by Azeem Pina 07/06/2019 3:24 PM
--- NOTE | 2019-07-06 18:22 | ECHO REPORT ---
ORDER DATE: 07/05/2019 INTERPRETING PHYSICIAN: Sanchez Oneill MD. INDICATIONS: Patient with question of congestive heart failure. Hypoxemia. Edema. M-MODE MEASUREMENTS: Left ventricle end diastole: 4.0 cm. Left ventricle end systole: 2.0 cm. Posterior wall: 1.1 cm. Interventricular septum: 1.1 cm. Left atrium: 4.2 cm. Aortic diameter: 2.7 cm. SUMMARY OF 2-DIMENSIONAL IMAGING: This study is technically very limited. Optison was added. 1. There is mild degree of concentric left ventricular hypertrophy. The left ventricular systolic function is normal. Ejection fraction is probably in the order of 65% to 70%. 2. Aortic valve appears to be grossly normal. 3. The mitral valve also appears to be grossly normal. 4. Pulsed wave Doppler of mitral inflow show minimal reversal of the E and the A ratio. 5. Tissue Doppler of septal and lateral mitral annulus averages 3 cm. 6. The pulmonic valve is unremarkable. Color flow mapping indicates trace of regurgitation. 7. The tricuspid valve looks normal. Color flow mapping unremarkable. 8. Pulmonary pressure is estimated at 23 to 28 mmHg. 9. There is no pericardial effusion, no mass, and no thrombus. 10.Epicardial fat pad is noted. Clinical correlation is recommended. cc: Sanchez Oneill MD
[2019-07-06] MEDS: ALBUMIN 25% IV SCH (18:23)
--- NOTE | 2019-07-06 18:37 | Diag Imaging Result Doc PS360 ---
EXAM: US ABDOMEN-COMPLETE 07/06/2019 HISTORY: suspected cirrhosis TECHNIQUE: Abdominal ultrasound COMMENT: The liver is somewhat hyperechoic. There is very poor detail seen in the deeper portions of the liver. There is antegrade flow in the portal vein. The gallbladder is clear and nontender. There is no evidence of biliary dilatation, the common bile duct measuring 7 mm. The kidneys are without evidence of hydronephrosis or mass. The spleen is not enlarged. The aorta and inferior vena cava as well as the pancreas are obscured. There is a 3.4 cm cyst in the left kidney. IMPRESSION: The possibility of cirrhosis cannot be excluded. Very poor exam technically. No evidence of ascites. Electronically signed by Azeem Pina 07/06/2019 6:35 PM
[2019-07-06] MEDS: ZYLOPRIM PO SCH (20:25)
[2019-07-06] MEDS: DEPAKOTE SPRINKLE PO SCH (20:25)
--- NOTE | 2019-07-06 22:28 | Extremity Venous Study ---
PROCEDURE NAME: Venous U/S Bilateral Legs - 07/05/2019 BITE BLOCK MAKER: Rina. REQUESTING PROVIDER: TRAVIS Smiley. INDICATION: Edema and elevated D-dimer with history DVT. BITE BLOCK MAKER NOTES: The patient is unable to comply completely with the exam due to altered mental status and the posterior tibial vein was not clearly visualized. FINDINGS: Deep superficial veins of bilateral lower extremities with the exception that the posterior tibial vein was the only visualized calf vessel noted at the ankle. Otherwise, the vessels were visualized and compressible, with forward flow and no evidence of deep or superficial venous thrombosis. SUMMARY: No deep or superficial venous thrombosis noted on this somewhat limited study. cc: Shukri Tyler MD
[2019-07-07] MEDS: KEFZOL 1 GM/D5W 1 GM/50 ML IVPB IV SCH ×3 (03:55→20:52)
[2019-07-07] MEDS: HUMALOG SUBQ SCH ×4 (06:41→20:56)
[2019-07-07 06:48] LABS: ALBUMIN 3.7 g/dL (3.5-5.0); CALCIUM 9.2 mg/dL (8.8-10.2); CREATININE 1.1 mg/dL (0.5-0.9); PHOSPHORUS 3.6 mg/dL (2.7-4.5); PREALBUMIN 11.1 mg/dL (20-40)
[2019-07-07] MEDS: LIPITOR PO SCH (08:58)
[2019-07-07] MEDS: LIALDA PO SCH (08:58)
[2019-07-07] MEDS: TUMS PO SCH (08:58)
[2019-07-07] MEDS: FERROUS SULFATE PO SCH ×3 (08:58→16:13)
[2019-07-07] MEDS: CULTURELLE PO SCH (08:58)
[2019-07-07] MEDS: LASIX IV SCH ×2 (08:59→20:52)
[2019-07-07] MEDS: ALBUMIN 25% IV SCH (08:59)
[2019-07-07] MEDS: VANCOMYCIN 1,400 MG in NS 250 ML IV SCH (13:31)
[2019-07-07] MEDS ORDERED: KLOR-CON PO ONE (14:42)
--- NOTE | 2019-07-07 14:50 | EKG Report ---
Test Performed on : 07/07/2019 2:35:19 PM Test Reason : dyspnea, elevated troponins Blood Pressure : / mmHG Vent. Rate : 092 BPM Atrial Rate : 092 BPM P-R Int : 126 ms QRS Dur : 114 ms QT Int : 392 ms P-R-T Axes : 052 -18 020 degrees QTc Int : 484 ms Normal sinus rhythm. Incomplete right bundle branch block Borderline ECG When compared with ECG of 05-JUL-2019 07:20, No significant change was found Unconfirmed Result
--- NOTE | 2019-07-07 15:48 | PROGRESS NOTE ---
DATE: 07/07/2019 Today Ms. Ng referred to be doing okay. She was just saying yes or no. She did not seem to be wanting to talk. Per the nursing staff, no changes overnight. OBJECTIVE: Vital signs: Blood pressure is 119/58 with a pulse of 90, respirations 18, temperature 98.3 degrees. General: Ms. Ng is a 78-year-old female. She is in bed, no distress. Mucosa is pink and moist. Anicteric. Acyanotic. Neck: Supple, is short. Chest: Air entry is bilaterally reduced, a few crackles posteriorly. Cardiovascular: Regular rate and rhythm. No murmurs. GI: Abdomen is soft. There is a right incisional hernia. There is also a large old surgical scar in the mid anterior abdominal wall. There is edema in the lateral and the lower abdomen. There is also about 3+ pedal edema, worse on the left than the right. The lower extremities are also quite erythematous, but this seems to be doing slightly better than before. COMPLAINT CLERK: Patient has her eyes closed but will open them and will say yes or no. She does not know where she is, according to her, but she knows her name. LABORATORY DATA: Sodium is 145, potassium is 3.0, chloride is 101.1. The patient's Is and Os, urine output was 1625. She is currently negative balance of 2355. ASSESSMENT: 1. Acute hypoxemic respiratory failure on presentation, due to pulmonary edema. We will continue with the diuretic therapy. 2. Fluid overload secondary to right heart failure, morbid obesity, and hypoalbuminemia. 3. Morbid obesity with suspected obstructive sleep apnea. Patient will follow up with the sleep team. 4. Elevated troponin on presentation, concerning for non STEMI. The patient also has calcification in his coronaries on the CT scan. Cardiology is on board. 5. History of severe Alzheimer's dementia with behavioral disturbances. 6. Unspecified psychosis. 7. Bilateral lower extremity edema with superimposed cellulitis worse on the left than the right. The patient is on an antimicrobial therapy. 8. Fatty liver disease on CT scan. Ultrasound, however, did not show any cirrhosis. Of note, it was a difficult study. 9. Protein calorie malnutrition with a prealbumin of 11.1. The patient is on nutritional supplement. Dietitian on board. cc: Silvano Fernandez MD
[2019-07-07] MEDS: ZYLOPRIM PO SCH (20:56)
[2019-07-07] MEDS: DEPAKOTE SPRINKLE PO SCH (20:56)
[2019-07-08] MEDS: KEFZOL 1 GM/D5W 1 GM/50 ML IVPB IV SCH ×3 (04:13→21:23)
[2019-07-08] MEDS: HUMALOG SUBQ SCH ×4 (06:22→21:24)
[2019-07-08 07:27] LABS: HEMATOCRIT 32.8 % (37.0-47.0); HEMOGLOBIN 9.6 g/dL (12.0-16.0); MCH 27.7 PG (27-31); MCHC 29.3 g/dL (33-37); MCV 94.5 FL (81-99); MPV 10.5 FL (7.4-10.4); RBC 3.47 XMIL (4.2-5.4); RDW 17.2 % (11.5-14.5); WBC 12.42 X1000 (4.8-10.8)
[2019-07-08 08:02] LABS: ALB/GLOB RATIO 1.5; ALBUMIN 3.7 g/dL (3.5-5.0); CALCIUM 9.3 mg/dL (8.8-10.2); CREATININE 1.1 mg/dL (0.5-0.9); POTASSIUM 3.5 mmol/L (3.5-5.1); TOTAL BILIRUBIN 0.32 mg/dL (0.20-1.00); TOTAL PROTEIN 6.2 g/dL (6.3-8.3)
[2019-07-08 08:06] LABS: FREE T4 0.94 ng/dL (0.93-1.70)
[2019-07-08 08:07] LABS: TSH 5.96 uIUmL (0.27-4.20)
[2019-07-08] MEDS: CULTURELLE PO SCH (08:19)
[2019-07-08] MEDS: ALBUMIN 25% IV SCH (08:19)
[2019-07-08] MEDS: LIPITOR PO SCH (08:19)
[2019-07-08] MEDS: FERROUS SULFATE PO SCH ×3 (08:19→21:23)
[2019-07-08] MEDS: LASIX IV SCH (08:19)
[2019-07-08] MEDS: LIALDA PO SCH (08:24)
[2019-07-08] MEDS: TUMS PO SCH (09:34)
[2019-07-08] MEDS: THERA M PLUS PO SCH (09:34)
[2019-07-08] MEDS: VANCOMYCIN 1,400 MG in NS 250 ML IV SCH (14:44)
--- NOTE | 2019-07-08 15:05 | PROGRESS NOTE ---
DATE: 07/08/2019 SUBJECTIVE: This morning, Ms. Ng refers to be doing okay, did not have any new complaints. Per the nursing staff, she consumed 100% of her breakfast. OBJECTIVE: Vital signs: Blood pressure is 147/74, pulse of 88, respiration is 14m temperature is 98.3 degrees. The patient was saturating 100% on 2 L. General: Ms. Ng is a 78-year-old elderly female, morbidly obese with a BMI of 41.9. She is in bed no distress. HEENT: Mucosa is pink and moist. Anicteric. Acyanotic. Neck: Supple. Chest: Good air entry bilateral. There was no crepitations, no rhonchi. Cardiovascular: Regular rate and rhythm. No murmurs, no rubs, no gallops. GI: Abdomen soft, is distended. Bowel sounds are present. There is an old large surgical scar on the mid anterior abdominal wall. There is a right paraincisional hernia. There is about 1+ pedal edema on the lateral aspect of the abdominal wall. Extremities: About 3+ pedal edema. The lower extremities also looks slightly erythematous, but it seems to be getting better. NEWCOMER HOSTESS: Patient is awake, alert, oriented to person, will say yes and no. She does not engage in a lot of conversation. DATA: The patient's I's and O's urine output was 1375. She is currently negative balance of 2966. LABORATORY DATA: Has been reviewed. WBC is down to 12.42, hemoglobin is 9.6, platelet count of 237,000. Chemistry is also reviewed. Creatinine is 1.1. TSH is still elevated at 5.96. ASSESSMENT: 1. Acute hypoxemic respiratory failure on presentation due to pulmonary edema. The patient continues to be on diuretic therapy. 2. Fluid overload of multifactorial etiologies including right heart failure, morbid obesity, hypoalbuminemia, and possible underlying subclinical hypothyroidism. 3. Morbid obesity with suspected obstructive sleep apnea. Patient has been advised to follow up with sleep team. 4. Elevated troponin on presentation with calcification of the coronaries on the CT scan concerning for non STEMI. Cardiology is on board. I understand Ms. Ng has been evaluated extensively even by intervention Cardiology in [place] at one point. 5. History of severe Alzheimer's dementia with behavioral disturbances. 6. Unspecified psychosis. 7. Bilateral lower extremity edema with superimposed cellulitis worse on the left than the right. The patient is on antimicrobial therapy. The redness looks to be getting better. 8. Fatty liver disease on CT scan. 9. Protein calorie malnutrition with prealbumin of 11.1. The patient is on nutritional supplement dietitian is on board. 10. Subclinical hypothyroidism. The patient is fluid overload, is constipated. She has some depressive mood. Despite a TSH is not above 10 I think she has enough evidence of symptoms that could be related to hypothyroidism, so I think it is reasonable to start her on a very low dose thyroid supplementation, which will also help to augment her anti depressive and antipsychotic medications. cc: Silvano Fernandez MD
[2019-07-08] MEDS ORDERED: NS 250 ML ONE (16:00)
[2019-07-08 17:24] LABS: INR 1.14; PROTIME 14.8 Seconds (11.0-16.0)
[2019-07-08] MEDS: DEPAKOTE SPRINKLE PO SCH (21:23)
[2019-07-08] MEDS: ZYLOPRIM PO SCH (21:23)
[2019-07-09] MEDS: KEFZOL 1 GM/D5W 1 GM/50 ML IVPB IV SCH (04:57)
[2019-07-09] MEDS: HUMALOG SUBQ SCH ×4 (06:12→21:44)
[2019-07-09] MEDS: SYNTHROID PO SCH (06:12)
--- NOTE | 2019-07-09 09:59 | PROGRESS NOTE ---
DATE: 07/09/2019 SUBJECTIVE: This morning Ms. Ng refers to be doing fairly okay. Denies any new complaints. Still has swollen lower extremities. OBJECTIVE: Vital signs: Blood pressure 149/48, pulse of 97, respirations 20, temperature 99.1 degrees. Patient did have a 99.8 early on today. General: Ms. Ng is an 79-year-old morbidly obese, female. She is in bed, no distress. BMI is 41.9. HEENT: Mucosa is pink and moist. Anicteric. Acyanotic. Neck: Supple. Chest: Good air entry bilateral. No crepitations. No rhonchi. Cardiovascular: Regular rate and rhythm. No murmurs, no rubs, no gallops. GI: Abdomen is soft distended but nontender. There is an old large surgical scar on the mid anterior abdominal wall. There is right paraincisional hernia. There is some mild edema on the lateral aspect of the abdominal wall. Extremities: About 3+ pedal edema. Extremities: Both lower extremity looks remarkably erythematous, worse on the left than the right. OVER SHORT AND DAMAGE CLERK: Patient is awake, alert. She very minimally engages in conversation. LABORATORY DATA: None for today. Glucose is 236. Current antimicrobial therapy has all been reviewed. The patient is on cefazolin. Today is day 4 and vancomycin as well. ASSESSMENT: 1. Acute hypoxemic respiratory failure on presentation due to pulmonary edema improved with diuretic therapy. 2. Fluid overload of multifactorial etiology including possible right heart failure, morbid obesity, hypoalbuminemia improving. 3. Morbid obesity with suspected obstructive sleep apnea. Patient advised to follow up with sleep studies. 4. Elevated troponin on presentation concerning for non STEMI. 5. Coronary calcification on the CT scan concerning for coronary artery disease. I understand patient has been evaluated extensively by an intervention assistant controller in [place], but recommend just medical management. Cardiology is following here. 6. History of Alzheimer's dementia with behavioral disturbances. 7. Unspecified psychosis per psych documentation. 8. Bilateral lower extremity edema with suspected superimposed cellulitis, worse on the left than the right. The patient is on Ancef and vancomycin. Today is day 4. Unfortunately, I have not seen a whole lot of improvement so I will consult ID. The patient has also been advised to keep the legs elevated. 9. Fatty liver disease on CT scan. 10. Protein calorie malnutrition with prealbumin of 11.1. The patient is on nutritional supplement, dietitian is on board. 11. Subclinical hypothyroidism. Patient is on supplemental thyroid medication because of associated symptoms including constipation and depression. PLAN: So, Ms Ng is currently negative balance of 3576. We are going to continue with the diuretic therapy. Her lower extremity swelling continues to be the same almost unchanged, so we will get ID to evaluate the bilateral cellulitis. DISPOSITION: [facility]. [facility] is a [facility] of a [facility] hopefully tomorrow or the next 24 to 48 hours she can be discharged back to the [facility]. cc: Silvano Fernandez MD
[2019-07-09] MEDS: LASIX IV SCH ×2 (10:06→21:43)
[2019-07-09] MEDS: ALBUMIN 25% IV SCH (10:19)
[2019-07-09] MEDS: LIALDA PO SCH (10:24)
[2019-07-09] MEDS: LIPITOR PO SCH (10:24)
[2019-07-09] MEDS: FERROUS SULFATE PO SCH ×3 (10:24→16:52)
[2019-07-09] MEDS: CULTURELLE PO SCH (10:24)
[2019-07-09] MEDS: TUMS PO SCH (10:25)
[2019-07-09] MEDS: THERA M PLUS PO SCH (10:25)
[2019-07-09 11:23] LABS: IRON SATURATION 11 %; TIBC 188 ug/dL; TOTAL IRON 21 ug/dL (49-151); UNBOUND IRON 167 ug/dL (112-346)
[2019-07-09 11:51] LABS: FERRITIN 72 ng/mL (13-150)
[2019-07-09] MEDS: MAXIPIME 2 GM in NS 100 ML IV SCH ×2 (12:15→21:51)
--- NOTE | 2019-07-09 15:33 | INFECTIOUS DISEASE CONSULT REP ---
DATE: 07/09/2019 CONCLUSION: The patient has a severe bilateral leg erythema. Despite receiving excellent care by Dr. Fernandez, the patient's legs are not improving. Patient has one of two blood cultures positive for diphtheroids. This is a contaminant. The patient is said to be allergic to ceftriaxone, however in the hospital she has been getting Ancef and tolerating it well. Therefore, I think she should tolerate cefepime well and I have ordered that the nurse watch the patient during the first dose of cefepime. RECOMMENDATIONS: I have discontinued the vancomycin and Ancef and instead I put the patient on cefepime. I have also ordered that the patient is to have the foot of the bed elevated continuously with the manual catch and also I put in as an order that the patient is to elevate her legs as long as possible. I obtained a culture from the patient's right foot from between the toes where there seemed to be some possibly purulent drainage. As mentioned above, the patient has one out of two blood cultures positive for diphtheroids. This is a contaminant and does not require antibiotic treatment. I have ordered that the nurses observe the patient during the first dose of cefepime. DISCUSSION: The patient is very lethargic. She is unable to provide a history. According to the chart, the patient was brought in from [facility] because of dyspnea and bilateral leg edema with erythema. The patient's studies thus far show a CBC with a white count of 12,420, hemoglobin 9.6, and platelet count 237,000. Creatinine is 1.1. GFR is 48. Liver function studies are negative. Urinalysis showed red blood cells but no bacteria or white blood cells. Venous Doppler showed no superficial or deep venous thrombosis. Abdominal ultrasound showed possible cirrhosis. CT scan of the chest showed cardiomegaly and pulmonary edema. PAST MEDICAL HISTORY: Positive for diabetes mellitus, chronic obstructive pulmonary disease, bilateral leg edema, gastroesophageal reflux disease, osteoarthritis, hypertension, gout, congestive heart failure, umbilical hernia, hyperlipidemia, and possible liver cirrhosis. The patient also has a history of blood clots, but the venous Doppler done in the hospital here does not show any blood clots. PAST SURGICAL HISTORY: Positive for hysterectomy, hernia repair, left hand surgery, tonsillectomy, and adenoidectomy. DRUG ALLERGIES: The patient is said to be allergic to ceftriaxone and daptomycin. The reaction is unknown and there is nothing marked under severity. The patient has been receiving Ancef and tolerating it well. REVIEW OF SYSTEMS: Unable to be obtained. HOME MEDICATIONS: Include, allopurinol, Eliquis, Lipitor, Bentyl, Depakote, Lasix, glipizide, hydrocodone, insulin, and pantoprazole. PHYSICAL EXAMINATION: Vital Signs: Temperature is 99.1 degrees, pulse 97, respirations 20, blood pressure is 149/48. She is 5 feet 5 inches tall and weighs 252 pounds. General: This is an obese, elderly female who is very lethargic. Head/eyes/ears/nose/throat: The patient, for the most part, kept her eyelids closed. When she did open she did not seem to track with her eyes. There is no drainage from the nose or ears. I could not get a good look into the patient's mouth. Neck: No meningismus. Lungs: Clear to auscultation. Cardiovascular: Heart rate is regular. Abdomen: Soft and not tender. Neurologic: The patient is very lethargic. She does not have a tremor. She did not follow verbal requests. Extremities: Both legs are edematous and erythematous. Between the 3rd and 4th toe there seemed to be some small amount of purulence present, which I sent for culture to the microbiology laboratory. Thank you for the consult. cc: Christiano Redmond MD
[2019-07-09] MEDS: DEPAKOTE SPRINKLE PO SCH ×2 (21:43→22:01)
[2019-07-09] MEDS: ZYLOPRIM PO SCH ×2 (21:43→22:01)
[2019-07-10] MEDS: SYNTHROID PO SCH (06:26)
[2019-07-10] MEDS: HUMALOG SUBQ SCH ×4 (06:31→22:11)
[2019-07-10 07:33] LABS: HEMATOCRIT 29.9 % (37.0-47.0); HEMOGLOBIN 8.7 g/dL (12.0-16.0); MCH 27.9 PG (27-31); MCHC 29.1 g/dL (33-37); MCV 95.8 FL (81-99); MPV 10.6 FL (7.4-10.4); RBC 3.12 XMIL (4.2-5.4); RDW 16.7 % (11.5-14.5); WBC 10.76 X1000 (4.8-10.8)
[2019-07-10 07:57] LABS: ALBUMIN 3.7 g/dL (3.5-5.0); CREATININE 1.2 mg/dL (0.5-0.9); MAGNESIUM 1.9 mg/dL (1.5-2.7); PHOSPHORUS 2.8 mg/dL (2.7-4.5); POTASSIUM 3.2 mmol/L (3.5-5.1)
[2019-07-10] MEDS: CULTURELLE PO SCH (09:16)
[2019-07-10] MEDS: LASIX IV SCH ×2 (09:16→22:11)
[2019-07-10] MEDS: THERA M PLUS PO SCH (09:16)
[2019-07-10] MEDS: LIALDA PO SCH (09:16)
[2019-07-10] MEDS: FERROUS SULFATE PO SCH ×3 (09:16→17:19)
[2019-07-10] MEDS: LIPITOR PO SCH (09:16)
[2019-07-10] MEDS: TUMS PO SCH (09:16)
[2019-07-10] MEDS: MAXIPIME 2 GM in NS 100 ML IV SCH ×2 (11:03→22:10)
--- NOTE | 2019-07-10 12:58 | PROGRESS NOTE ---
DATE: 07/10/2019 SUBJECTIVE: This morning, Ms. Ng refers to be doing okay. No new complaints. Still has some pains, and she barely wants to talk. OBJECTIVE: Vital Signs: Blood pressure is 138/56, pulse of 100, respirations 18, temperature 98.9 degrees, the patient is saturating 100% on room air. General: Ms. Ng is an 79-year-old female. She is in bed. She is not in any cardiopulmonary distress. HEENT: Mucosa is pink and moist. Anicteric. Acyanotic. Neck: Supple. It is round. It is short. No JVD. Respiratory: There is good air entry bilaterally. No crepitations. No rhonchi. Cardiovascular: Regular rate and rhythm. No murmurs, no rubs, no gallops. GI: Abdomen was soft, distended. There is a large surgical scar on the mid anterior abdominal wall. There is a right para- incisional hernia. There is also some edema on the lateral aspect of the abdominal wall. Extremities: About 3+ pedal edema. Lower extremities continue to show bilateral erythematous changes, worse on the left side. FOUNDRY FINISHER: The patient is awake, alert, very minimally cooperative with physical exam, however. LABORATORY DATA: WBC is normalized at 10.76, hemoglobin is 8.7, platelet count of 203,000. Chemistry is reviewed and unremarkable, except creatinine is 1.2 and potassium is 3.2. ASSESSMENT: 1. Acute hypoxemic respiratory failure on presentation secondary to pulmonary edema, improved with diuretic therapy. 2. Fluid overload, most likely multifactorial etiology, including possible right heart failure, morbid obesity, hypoalbuminemia. 3. Morbid obesity with suspected obstructive sleep apnea. The patient has been advised to follow up with sleep studies. 4. Elevated troponin on presentation concerning for non ST-elevation myocardial infarction. Cardiology is on board. 5. Coronary calcification on the CT scan, concerning for coronary artery disease. Cardiology has evaluated the patient. I understand that Ms. Ng has been evaluated in the past by Interventional Cardiology in [place]. 6. History of Alzheimer's dementia with behavioral disturbances. Noted. 7. Unspecified psychosis per Psychiatric documentation. 8. Bilateral lower extremity edema with superimposed cellulitis, worse on the left than the right. The patient is currently switched to cefepime by Infectious Disease. Will follow up with their further recommendations. 9. Fatty liver disease on CT scan. Noted. 10. Protein calorie malnutrition with prealbumin of 11.1. The patient is on nutritional supplement, and dietitian is on board. 11. Subclinical hypothyroidism. The patient has been started on low-dose thyroid medication because she has symptoms that could be attributed to hypothyroidism, and the fact that the thyroid medication will also help with her depression and psychiatric medications. In general, Ms. Ng is fairly stable. She presented to the hospital on 07/04/2019. Today is day 6 of hospitalization. Initially, it was because she was having difficulty breathing and lower extremity edema. She also did have elevated troponins in her lab work, was evaluated by Cardiology. During the workup, her echocardiogram seems to suggest normal ejection fraction. Cardiology recommends to treat her coronary artery disease medically. Ms. Ng also has erythematous changes of the lower extremity. She was initially on Ancef and vancomycin. However, there was really no major improvement, so Infectious Disease was consulted yesterday. Antibiotic has been changed to cefepime. We will follow up with clinical improvement and further recommendations from Infectious Disease. DISPOSITION: Ms. Ng is being evaluated for rehab placement, most likely to [facility]. We will follow up with Social Work to see when a bed will be available. cc: Silvano Fernandez MD
--- NOTE | 2019-07-10 18:25 | INFECTIOUS DISEASE PROGRESS NO ---
DATE: 07/10/2019 PRESENT ILLNESS: The patient has bilateral severe leg cellulitis. MEDICATIONS: Currently, the patient is on cefepime. This is day 1 of treatment with that agent. PHYSICAL EXAMINATION: Vital Signs: Temperature is 97.6 degrees, pulse 93, respirations 16, blood pressure 126/62. General: This is a lethargic, obese, elderly female. She is very lethargic. Head/eyes/ears/nose/throat: No drainage noted from the nose or ears. Neck: Most any time I touch the patient or moved her she screams out. Lungs: Clear to auscultation. Cardiovascular: Heart rate is regular. Abdomen: Soft. Extremities: Both legs are very erythematous, but they are less swollen than they were yesterday. Neurologic: The patient as mentioned above, is very lethargic. She did not respond to verbal stimuli. She does not have any tremor. LAB AND X-RAY: A culture from the right foot is pending. Creatinine is 1.2. GFR is 43. CBC shows a white count of 10,760, hemoglobin 8.7, and platelet count 203,000. ASSESSMENT AND PLAN: Patient has leg cellulitis. I plan on continuing cefepime and also continuing leg elevation as long as possible. COMORBIDITIES: The patient is elderly. She is obese and has chronic leg edema. The patient also is a diabetic and she has chronic obstructive pulmonary disease and gastroesophageal reflux disease as well as gout. The patient has a history of blood clots in her legs, but the Doppler study done at [facility] did not find any clots currently. cc: Christiano Redmond MD
[2019-07-10] MEDS: DEPAKOTE SPRINKLE PO SCH (22:11)
[2019-07-10] MEDS: ZYLOPRIM PO SCH (22:11)
[2019-07-11] MEDS: HUMALOG SUBQ SCH ×4 (06:13→22:08)
[2019-07-11] MEDS: SYNTHROID PO SCH (06:14)
[2019-07-11 07:41] LABS: HEMATOCRIT 32.7 % (37.0-47.0); HEMOGLOBIN 9.5 g/dL (12.0-16.0); MCH 27.8 PG (27-31); MCHC 29.1 g/dL (33-37); MCV 95.6 FL (81-99); MPV 10.3 FL (7.4-10.4); RBC 3.42 XMIL (4.2-5.4); WBC 13.13 X1000 (4.8-10.8)
[2019-07-11 08:25] LABS: ALBUMIN 3.5 g/dL (3.5-5.0); CALCIUM 9.3 mg/dL (8.8-10.2); CREATININE 1.1 mg/dL (0.5-0.9); MAGNESIUM 1.8 mg/dL (1.5-2.7); PHOSPHORUS 2.9 mg/dL (2.7-4.5); POTASSIUM 3.2 mmol/L (3.5-5.1)
[2019-07-11] MEDS ORDERED: KLOR-CON PO ONE (10:20)
[2019-07-11] MEDS: FERROUS SULFATE PO SCH ×3 (10:40→22:08)
[2019-07-11] MEDS: MAXIPIME 2 GM in NS 100 ML IV SCH ×2 (10:40→22:08)
[2019-07-11] MEDS: LASIX IV SCH ×2 (10:40→22:08)
[2019-07-11] MEDS: LIALDA PO SCH (10:41)
[2019-07-11] MEDS: TUMS PO SCH (10:41)
[2019-07-11] MEDS: LIPITOR PO SCH (10:41)
[2019-07-11] MEDS: THERA M PLUS PO SCH (10:41)
[2019-07-11] MEDS: CULTURELLE PO SCH (10:41)
--- NOTE | 2019-07-11 19:40 | PROGRESS NOTE ---
DATE: 07/11/2019 SUBJECTIVE: Patient has no major complaints. OBJECTIVE: Vital signs: Blood pressure is 137/81, heart rate of 90, respiratory rate of 16, temperature 98.1 degrees. Cardiovascular: Regular rate and rhythm. Pulmonary: Bilateral breath sounds, clear to auscultation. GI: Soft, nontender, nondistended. Bowel sounds are positive. LABORATORY DATA: White count is 13, hemoglobin and hematocrit 9 and 32, platelets 251,000. Potassium 3.2, creatinine 1.1. PROBLEM LIST: 1. Acute hypoxic respiratory failure, that has improved with diuretic therapy. 2. Elevated troponin with non ST-elevation myocardial infarction. Cardiology is monitoring for next possible steps there. 3. Cellulitis. Infectious Disease is following. She is currently on cefepime. 4. Severe protein-calorie malnutrition. We will continue to follow that way. 5. Subclinical hypothyroidism. We will continue to follow. 6. Disposition. Waiting on final recommendations per GI, improvement in cellulitis, and then possible rehab placement, although the patient seems to think that she is going back to that. cc: Graeme Wheatley MD
--- NOTE | 2019-07-11 20:42 | INFECTIOUS DISEASE PROGRESS NO ---
DATE: 07/11/2019 PRESENT ILLNESS: Ms. Ng is being treated for bilateral lower extremity cellulitis. There are gram-positive cocci growing to the right foot. MEDICATIONS: She is receiving cefepime 2 g IV every 12 hours. PHYSICAL EXAMINATION: Vital Signs: Temperature is 98 degrees, pulse rate 91, respiratory rate 11, blood pressure 152/65, and O2 saturation is 96% on room air. General: This is a an elderly, morbidly obese female. She is lying in bed, currently in no acute distress. HEENT: Atraumatic, normocephalic. Oral mucous membranes are pink and moist. Conjunctivae are pale. Neck: Supple. Trachea is midline. Cardiovascular: Heart rate is regular. Respiratory: Lung sounds are bilaterally clear to auscultation and diminished in the bases. No work of breathing is noted. Abdomen: Soft, obese and nontender. Bowel sounds are active. Integumentary: Skin is warm and dry. Lower extremities are improving. There is erythema noted from the knees down bilaterally with wrinkling to the skin from a decrease in swelling. PICC line in place to the right upper arm, without edema, erythema, or drainage. Neurologic: She is drowsy and lethargic, but arousable. She does have some confusion. Is able to move all extremities in the bed with generalized weakness noted. LABORATORY AND X-RAY: Today, her white count is 13.13, hemoglobin 9.5, platelet count 251,000. Creatinine is 1.1. GFR is 48. Her right foot culture has grown a gram-positive coccus. No imaging reports today. ASSESSMENT AND PLAN: Ms. Ng is being treated for bilateral lower extremity cellulitis in the setting of morbid obesity and chronic lower extremity edema. At this point, the culture does show gram- positive cocci. The lower extremities are elevated as ordered, and looking better, with a noted decrease in swelling and erythema. She is receiving cefepime which we will continue at this time, pending the final cultures. These plans have been discussed with and recommended by Dr. Redmond. COMORBIDITIES: For Ms. Ng, include that she is elderly and morbidly obese with chronic lower extremity edema, diabetes mellitus, chronic obstructive pulmonary disease, gastroesophageal reflux disease, gout, and history of dementia and deep venous thrombosis. Dictated by TRAVIS Coats for Christiano Redmond MD cc: Christiano Redmond MD MTDD
[2019-07-11] MEDS: DEPAKOTE SPRINKLE PO SCH (22:08)
[2019-07-11] MEDS: ZYLOPRIM PO SCH (22:08)
[2019-07-12] MEDS: HUMALOG SUBQ SCH ×4 (06:55→21:26)
[2019-07-12] MEDS: SYNTHROID PO SCH (07:00)
[2019-07-12 07:54] LABS: BASO# 0.05 X1000 (0.0-0.2); BASO% 0.4 % (0.0-0.8); EOS% 3.7 % (0.0-10.0); HEMATOCRIT 33.5 % (37.0-47.0); HEMOGLOBIN 9.5 g/dL (12.0-16.0); IMM GRAN% 2.2 % (0.0-0.5); LYMPH% 20.6 % (20.5-51.1); MCH 26.5 PG (27-31); MCHC 28.4 g/dL (33-37); MCV 93.3 FL (81-99); MONO# 1.45 X1000 (0.11-0.59); MONO% 10.6 % (1.7-9.3); MPV 10.2 FL (7.4-10.4); NEUT# 8.52 X1000 (1.4-6.5); NEUT% 62.5 % (42.2-75.2); PLT 262 X1000 (130-400); RBC 3.59 XMIL (4.2-5.4); RDW 16.7 % (11.5-14.5); WBC 13.62 X1000 (4.8-10.8)
[2019-07-12 08:10] LABS: CREATININE 1.2 mg/dL (0.5-0.9)
[2019-07-12] MEDS: CULTURELLE PO SCH (09:24)
[2019-07-12] MEDS: LASIX IV SCH (09:24)
[2019-07-12] MEDS: LIPITOR PO SCH (09:24)
[2019-07-12] MEDS: FERROUS SULFATE PO SCH ×3 (09:24→16:00)
[2019-07-12] MEDS: LIALDA PO SCH (09:24)
[2019-07-12] MEDS: TUMS PO SCH (09:24)
[2019-07-12] MEDS: THERA M PLUS PO SCH (09:24)
[2019-07-12] MEDS: MAXIPIME 2 GM in NS 100 ML IV SCH (09:30)
[2019-07-12] MEDS ORDERED: KLOR-CON PO ONE (09:42)
[2019-07-12] MEDS ORDERED: LEVAQUIN 500 MG/D5W 500 MG/100 ML IVPB IV SCH (09:45)
[2019-07-12] MEDS: KEFZOL 2 GM/D5W 2 GM/50 ML IVPB IV SCH (16:00)
[2019-07-12] MEDS: DEPAKOTE SPRINKLE PO SCH (21:25)
[2019-07-12] MEDS: ZYLOPRIM PO SCH (21:25)
--- NOTE | 2019-07-12 22:54 | PROGRESS NOTE ---
DATE: 07/12/2019 SUBJECTIVE: Patient has no major complaints. OBJECTIVE: Vital signs: Blood pressure is 153/73, heart rate 94, respiratory rate 24, temperature 98.5 degrees, saturation 100% on 3 L. Cardiovascular: Regular rate and rhythm. Pulmonary: Bilateral breath sounds. Clear to auscultation. Gastrointestinal: Soft, nontender, nondistended. Bowel sounds are positive. PROBLEM LIST: 1. Acute hypoxic respiratory failure. Overall has improved. 2. Non-ST segment elevation myocardial infarction. We will continue monitoring. Cardiology is following, not sure if they are planning to do any other testing. 3. Cellulitis with a positive wound culture for Staphylococcus simulans, essentially a methicillin-sensitive Staphylococcus, so she is now on cefazolin per Dr. Redmond' recommendations and can be discharged on Keflex when ready. 4. Type 2 diabetes, stable. 5. Ulcerative colitis. Continue Lialda and follow. 6. Hypokalemia. We will continue to supplement and monitor. DISPOSITION: We are looking at [facility] in [place] for rehab and then possible long- term placement per social Work. I think, we will see how she is doing tomorrow and look at the readiness there. cc: Graeme Wheatley MD
[2019-07-13] MEDS: KEFZOL 2 GM/D5W 2 GM/50 ML IVPB IV SCH (03:12)
--- NOTE | 2019-07-13 04:53 | INFECTIOUS DISEASE PROGRESS NO ---
DATE: 07/12/2019 PRESENT ILLNESS: Ms. Ng has bilateral lower extremity cellulitis, and she has grown Staphylococcus Simulans to her right foot. MEDICATIONS: She was receiving cefepime 2 g IV every 12 hours which has been changed to Levaquin 500 mg IV daily. PHYSICAL EXAMINATION: Vital Signs: Temperature 98.1 degrees, pulse rate 95, respiratory rate 14, and blood pressure 179/75. O2 saturation is 100% on 3 L nasal cannula. General: This is an elderly morbidly obese female. She is lying in the bed currently in no acute distress. HEENT: Atraumatic, normocephalic. Oral mucous membranes are pink and moist. Conjunctivae are pale. Cardiovascular: Heart rate is regular. Respiratory: Lung sounds are clear to auscultation in the upper lobes. Diminished in the mid bases. Abdomen: Soft, obese, and nontender. Bowel sounds are active. Integumentary: Skin is warm and dry with erythema and edema to bilateral lower extremities. There is a PICC line in place to the right upper arm. The site is without edema, erythema or drainage. Neurologic: She is lethargic but arousable, and confused. She is able to move her lower extremities but generalized weakness is noted. LABORATORY AND X-RAY: Today, her white count is 13.62, hemoglobin 9.5, platelet count 262,000, and creatinine is 1.2. GFR 43. Her right foot grew Staphylococcus simulans. No imaging reports today. ASSESSMENT AND PLAN: Ms. Ng is being treated for lower extremity cellulitis bilaterally. This will probably take weeks to treat due to her morbid obesity, and chronic lower extremity edema. Upon entering the room, the foot Gatch was down and her legs actually look more red and swollen than yesterday when the foot Gatch was up. We will need to keep her lower extremities elevated at all times. Based on the Staph Simulans, we will change her antibiotics to Ancef 2 g IV every 12 hours as a renally modified dose. Ceftriaxone is in her list of allergies. The patient was previously on Ancef earlier this hospitalization, and did not have any problems. However, she seems to do well with cephalosporins. Whenever she is ready to be discharged to the [facility], we suggest sending her out on Keflex 500 mg by mouth every 8 hours. These plans have been discussed with and recommended by Dr. Redmond. COMORBIDITIES: The comorbidities for Ms. Ng includes that she is elderly and morbidly obese with chronic lower extremity edema, diabetes mellitus, COPD, gastroesophageal reflux disease, gout, dementia and history of deep vein thrombosis. Dictated by TRAVIS Coats for Christiano Redmond MD cc: Christiano Redmond MD MTDD
[2019-07-13] MEDS: SYNTHROID PO SCH (06:39)
[2019-07-13] MEDS: HUMALOG SUBQ SCH (06:42)
[2019-07-13 08:38] LABS: BASO# 0.06 X1000 (0.0-0.2); BASO% 0.4 % (0.0-0.8); EOS# 0.32 X1000 (0.0-0.7); EOS% 2.2 % (0.0-10.0); HEMATOCRIT 34.2 % (37.0-47.0); HEMOGLOBIN 9.7 g/dL (12.0-16.0); IMM GRAN# 0.55 X1000 (0.0-0.04); IMM GRAN% 3.8 % (0.0-0.5); LYMPH% 26.2 % (20.5-51.1); MCH 26.4 PG (27-31); MCHC 28.4 g/dL (33-37); MCV 92.9 FL (81-99); MONO# 1.84 X1000 (0.11-0.59); MONO% 12.7 % (1.7-9.3); MPV 10.1 FL (7.4-10.4); NEUT# 7.94 X1000 (1.4-6.5); NEUT% 54.7 % (42.2-75.2); PLT 259 X1000 (130-400); RBC 3.68 XMIL (4.2-5.4); RDW 16.8 % (11.5-14.5); WBC 14.51 X1000 (4.8-10.8)
[2019-07-13 08:59] LABS: CALCIUM 9.3 mg/dL (8.8-10.2); CREATININE 1.2 mg/dL (0.5-0.9); MAGNESIUM 1.8 mg/dL (1.5-2.7); POTASSIUM 3.3 mmol/L (3.5-5.1)
[2019-07-13 09:21] LABS: BANDS 2 % (0-1); EOS 2 % (1-10); LYMPHS 22 % (21-51); MONO 4 % (1-9); SEGS 68 % (42-75)
[2019-07-13] MEDS: LIALDA PO SCH (10:21)
[2019-07-13] MEDS: TUMS PO SCH (10:21)
[2019-07-13] MEDS: CULTURELLE PO SCH (10:21)
[2019-07-13] MEDS: THERA M PLUS PO SCH (10:21)
[2019-07-13] MEDS: FERROUS SULFATE PO SCH (10:21)
[2019-07-13] MEDS: LIPITOR PO SCH (10:21)
[2019-07-13] MEDS ORDERED: KLOR-CON PO ONE (11:47)
--- NOTE | 2019-07-13 12:25 | DISCHARGE SUMMARY ---
ADMISSION DATE: 07/04/2019 DISCHARGE DATE: 07/13/2019 CONSULTATIONS: 1. Cardiology. 2. Infectious Disease. ADMISSION DIAGNOSES: 1. Hypoxemia. 2. Questionable chest pain. 3. Bilateral lower extremity edema with erythema. 4. Chronic obstructive pulmonary disease, not in exacerbation. 5. Diabetes. 6. Arthritis. 7. Hypertension. 8. Gout. 9. Congestive heart failure with normal proBNP. DISCHARGE DIAGNOSES: 1. Acute hypoxemic respiratory failure, improved. 2. Non ST-segment elevation myocardial infarction. 3. Cellulitis with a positive wound culture for Staphylococcus Simulans, which is essentially a methicillin-resistant Staphylococcus. 4. Diabetes type 2. 5. Ulcerative colitis. 6. Hypokalemia, improved. SUMMARY OF FINDINGS: This is an 79-year-old female, who presented to the emergency department with shortness of breath and hypoxemia with weeping edema and erythema to bilateral lower extremities. She had an O2 saturation of 88% on 2 L at the facility she was at. She has a history of Alzheimer. Her workup in the ED showed elevated troponins. She was transferred over to the [facility]. Placed on IV antibiotics. Given Lasix for diuresis. We did an echocardiogram on 07/05/2019 that showed an ejection fraction of 65 to 70 percent with left ventricular systolic function normal. CTA of the chest and thorax showed no pulmonary emboli. Cardiology consultation found that she had a non ST-elevation OR. She was not having any chest pain. Conservative approach was the best option according to Cardiology. Abdomen x-ray on 07/06/2019 showed no evidence of obstruction. Abdomen ultrasound on the same day showed possibility of cirrhosis could not be excluded; it was a very poor exam technically, but no evidence of ascites. Infectious Disease saw the patient starting on 07/09/2019. Had made some changes to her IV antibiotics and placed her on cefepime, elevating her feet continually, and it is felt that she can safely be discharged to rehab and may possibly go to their long-term placement at some point today. DISCHARGE MEDICATIONS: Zyloprim 300 mg p.o. at bedtime, atorvastatin 10 mg p.o. daily, calcium 500 mg p.o. daily, divalproex 375 mg p.o. at bedtime, Colace 100 mg p.o. b.i.d. p.r.n., ferrous sulfate 325 mg p.o. t.i.d., Florajen 3 capsule 1 p.o. daily, Mesalamine 2400 mg p.o. daily, Thera M Plus 1 p.o. daily, Eliquis 5 mg p.o. b.i.d., vitamin C 500 mg p.o. b.i.d., Keflex 500 mg p.o. t.i.d. #30 with no refills, cyanocobalamin 1000 mcg IM q. 30 days, Bentyl 10 mg p.o. q. 8 hours p.r.n., Lasix 40 mg p.o. daily, glipizide 5 mg p.o. daily, hydrocodone 5 one p.o. q. 6 hours p.r.n., Lantus 45 units subcutaneous at bedtime, Humalog 15 units subcutaneous b.i.d., butirosin 1 application topically daily, nystatin powder topically b.i.d., pantoprazole 40 mg p.o. daily, potassium 10 mEq p.o. daily. FOLLOWUP: She will need to follow up with her primary care physician once she has completed her rehab stay. She will be following with the facility physician during her stay at the facility. TIME SPENT: This is a 35 minute discharge. Dictated by TRAVIS Trujillo for Graeme Wheatley MD cc: TRAVIS Trujillo MD [facility]
[2019-07-13 12:44] VITALS: BP 148/62
--- NOTE | 2019-07-14 13:00 | DISCHARGE SUMMARY ---
ADMISSION DATE: 07/04/2019 DISCHARGE DATE: 07/13/2019 HISTORY: The patient is a bit somnolent but she kind of does that off and on. She does have sleep apnea, which I think she has not been getting her CPAP. Exam is unremarkable. She still has some erythema on her lower extremities. She does have some leukocytosis, but she has been getting cefazolin for her cellulitis. We are going to discharge her on Keflex per Dr. Redmond's recommendations. Nurse noted possible dark stool. She is heme negative. Her hemoglobin and hematocrit has been stable at 9 and 34 today, and it has been that way for 3 days. She does have ulcerative colitis. She does take iron so I think some of this may be related to that more than other processes. Full dictation per Amara Mistry's discharge summary. We are going to hold her Eliquis for 72 hours assuming there is no bleeding noted. I think it can be resumed after that. TIME SPENT: 32 minute discharge for rehab discharge. cc: Graeme Wheatley MD
== END 2019-07-13 16:48 | DRG 602 ==
LOC: P.ED 22:50 → 2N 22:51 → SUATTDRO 22:51 → 3N 07-08 10:58
PROVIDERS: ATTEND Internal Medicine